=== PATIENT | female | born 1950 | race Caucasian/White ===

== ENCOUNTER 2017-03-08 16:04 | Inpatient (IN) ==
--- NOTE | 2017-03-08 16:50 | Emergency Department Note ---
Nehemias Williamson Gwan, am scribing for, and in the presence of, Carlos Alberto Ronquillo MD 16:40 . Shima Williamson James D, MD, personally performed the services described in this documentation, ascribed by Lacy Del Cid in my presence, and it is both accurate and complete [id number] . Arrival - Arrival Chief Complaint: Altered Mental Status ED Nursing Triage Note: pt was at [facility] for her pt check and went unresposive in the waiting room. Mode of Arrival: Stretcher Limitations: Altered Mental Status Source: Old Records Reviewed, RN Notes Reviewed - History of Present Illness HPI Narrative: Patient is a 67 y/o female who presents to the ED via EMS for further evaluation. Patient will respond to voice commands with inappropriate speech. Caregiver noted that patient was attempting to get into the vehicle after getting her PT check and she began unresponsive. This prompted them to alert EMS to report to ED for further evaluation. Caregiver stated patient has had a decrease in memory and activity over the past 1-2 days. Patient is followed by Dr. Shahid and Dr. Crews. Caregiver continued to state that patient baseline is consistent of being talkative and active. Caregiver denies that patient has a PMHx of psychiatric problems. Patient has a past SHx of smoking cigarettes daily. Mother denies that patient has been compliant with prescribed medications. Pt has a PMHx of CAD, HTN, AFIB, dyslipidemia and NIDDM. No other problems/complaints reported in ED. 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 Patient has a history of an ischemic cardiomyopathy and mitral regurgitation. Patient recently underwent transesophageal echocardiogram by Dr. Shahid which showed a decline in her EF. Onset (ago): minute(s) Consistency: constant Severity: moderate Allergies/Adverse Reactions: Allergies Allergy/AdvReac Type Severity Reaction Status Date / Time SEB Inhibitors Allergy Cough Verified 02/07/17 13:21 latex Allergy RASH Verified 02/07/17 13:21 lisinopril Allergy Cough Verified 02/07/17 13:21 Home Medications: Home Medications Medication Instructions Recorded Confirmed Type Acetaminophen Tab [Tylenol Tab] 650 mg PO Q4H PRN 02/07/17 02/07/17 History Aspirin EC Tab 81 mg PO DAILY 02/07/17 02/07/17 History Atorvastatin [Lipitor] 40 mg PO BEDTIME 02/07/17 02/07/17 History Carvedilol [Coreg] 6.25 mg PO BID 02/07/17 02/07/17 History Colchicine [Colcrys] 0.6 mg PO BID PRN 02/07/17 02/07/17 History Docusate Sodium 100 mg PO DAILY 02/07/17 02/07/17 History Furosemide Tab [Lasix Tab] 40 mg PO DAILY 02/07/17 02/07/17 History Furosemide Tab [Lasix Tab] 40 mg PO PC LUNCH 02/07/17 02/07/17 History Pantoprazole Tab [Protonix Tab] 40 mg PO DAILY 02/07/17 02/07/17 History Potassium Chloride 20 meq PO BID 02/07/17 02/07/17 History Sertraline [Zoloft] 50 mg PO BID 02/07/17 02/07/17 History Warfarin [Coumadin] 3 mg PO [id number]@1800 02/07/17 02/07/17 History Warfarin [Coumadin] 4 mg PO MO 02/07/17 02/07/17 History diphenhydrAMINE CAP [Benadryl Cap] 25 mg PO DAILY PRN 02/07/17 02/07/17 History Review of System - Review of System ROS unobtainable: due to mental status Medical,Surgical,& Family Hx - Medical History Cardio: History of: Cardiac Dysrhythmia (Atrial fibrillation), CAD, Hypertension , Valvular Heart Disease Neurology: No history of: Seizures Endocrine: History of: Diabetes Mellitus (NIDDM), Dyslipidemia - Surgical History Cardiac Surgeries: Sugical HX of: Cardiac Surgery - Social History Smoking Status: Unknown if ever smoked Frequency of Alcohol Use: Unknown Type of Drug Use: Unknown Exam Physical Examination: GENERAL: This is an ill appearing obese white female in no apparent distress. Patient will respond to voice commands with inappropriate speech. VITAL SIGNS: Reviewed HEENT: Head is normocephalic and atraumatic. Pupils are equally round and reactive to light. Extraocular movement are intact. Oropharynx is benign with moist mucous membranes. NECK: Neck is soft and supple without tenderness. There are no masses. There is no lymphadenopathy. LUNGS: Lungs are clear to auscultation bilaterally. Chest rises symmetrically. There is no chest wall tenderness. CV: Heart is irregularly irregular without murmurs, rubs, or gallops. ABDOMEN: Abdomen is soft, non-tender to palpation. There are no abnormal masses palpated. There is no organomegaly. Bowel sounds are present and active. SKIN: Skin is warm and dry. No rash. EXTREMITIES: Patient has full range of motion without tenderness. There is no pedal edema. NEUROLOGIC: Arousable to vocal and tactile stimulus. Moves all extremities. Vital Signs: Vital Signs Temperature 98.6 F 03/08/17 16:10 Pulse Rate 86 03/08/17 16:10 Respiratory Rate 18 03/08/17 16:10 Blood Pressure 116/80 03/08/17 16:10 O2 Sat by Pulse Oximetry 95 03/08/17 16:10 Course - Consultations Consultation #1: Discussed with hospitalist. Patient will be seen by them in the emergency department. Time: 18:11 Results - Labs CBC & BMP: 03/08/17 17:23 03/08/17 17:23 Lab Results: I have reviewed the patients labs - EKG EKG results: interpreted by ERMD - Impressions EKG: Atrial fib with a rate of 75, frequent PVCs, nonspecific ST-T wave changes. - Diagnostic Findings Procedure: Chest x-ray: image reviewed by me (Old median sternotomy, cardiomegaly. prosthetic valve.), CT: image reviewed by me (CT head: No acute intracranial lesion or hemorrhage. Old left cerebellar infarct.) Disposition Clinical Impression: Altered mental status, Chronic anticoagulation, Mitral regurgitation, Ischemic cardiomyopathy Case discussed with: patient's family Disposition: Still a Patient
--- NOTE | 2017-03-08 16:56 | CT Report ---
Exam: CT head without intravenous contrast Clinical History: 67-year-old female with altered mental status, confusion Technique: Axial computed tomography images of the head/brain without intravenous contrast Comparison: No relevant comparisons Findings: Brain: Remote left cerebellar infarction with encephalomalacia. Patchy microangiopathic small vessel ischemic changes throughout the deep white matter. Lau-white matter distinction maintained. No mass effect. No intra or extra-axial hemorrhage. Ventricles: Unremarkable. No ventriculomegaly. Bones/joints: Calvarium is intact Soft tissues: Unremarkable Sinuses: No active paranasal sinus process Mastoid air cells: Unremarkable visualized. Impression: 1. No acute intracranial abnormality. Remote left cerebellar insult and mild microangiopathic small vessel ischemic changes are noted. PROCEDURE INTERPRETED AT [facility] DEPARTMENT OF RADIOLOGY Final Report Signed by: Hector Lau
--- NOTE | 2017-03-08 17:00 | XRay Report ---
Portable chest March 08, 2017 at 1654 hours Indication: Altered mental status Comparison images dated September 17, 2013 Findings: Cardiac mediastinal contours are stable post sternotomy and valve replacement. Chronic coarsening of interstitium. No consolidative or congestive process. No acute osseous abnormality. Granulomatous changes are noted. Impression: No acute cardiopulmonary findings PROCEDURE INTERPRETED AT [facility] DEPARTMENT OF RADIOLOGY Final Report Signed by: Hector Lau
--- NOTE | 2017-03-08 17:29 | EKG Report ---
Stationary ECG Study [facility] ER Test Date: 03/08/2017 5:07:02 PM Pat Name: BREONNA JENNINGS Department: Room: Gender: F Balance Staff Inspector: : [id number] Requested by: Carlos Alberto Aguilar Order Number: [id number] Reading MD: GRETA TANG Intervals [place] Rate: 75 P: 999 MA: 0 QRS: 59 QRSD: 74 T: 127 QT: 354 QTc: 383 Interpretive Statements ATRIAL FIBRILLATION WITH ABERRANT CONDUCTION OR VENTRICULAR PREMATURE COMPLEXES LOW QRS VOLTAGE IN PRECORDIAL LEADS POSSIBLE ANTERIOR MYOCARDIAL INFARCTION, PROBABLY OLD ABNORMAL RHYTHM ECG Electronically Signed On 03-08-17 20:16:34 CDT by GRETA TANG [email or web address]
[2017-03-08 17:45] LABS: Basophils # 0.1 10*3/uL (0.0-0.2); Eosinophils # 0.1 10*3/uL (0.0-0.87); Hematocrit 40.6 VOL% (35.7-47.0); Hemoglobin 13.3 GM/DL (12.0-16.0); Immature Granulocytes % 0.2 %; Immature Granulocytes Absolute 0.01 #; Lymphocytes # 1.6 10*3/uL (1.4-4.0); Lymphocytes % 26.7 % (21.3-54.2); Mean Corpuscular HGB Conc 32.8 GM/DL (32-36); Mean Corpuscular Hemoglobin 28 PG (27-34); Mean Corpuscular Volume 86.6 FL (87-102); Monocytes # 0.8 10*3/uL (0.11-0.8); Monocytes % 13.6 % (1.7-12.7); Neutrophils # 3.3 10*3/uL (1.4-7.4); Neutrophils % 56.5 % (38.7-73.9); Platelet Count 223 T/CUMM (130-400); Red Blood Count 4.69 MC/CUMM (3.8-5.5); White Blood Count 5.9 T/CUMM (4-12)
[2017-03-08 17:47] LABS: Apearance,Urine CLEAR (Clear); Bilirubin,Urine Negative (Negative); Blood, Urine Negative (Negative); Glucose,Urine (UA) Negative (Negative); Ketones,Urine Negative (Negative); Mucus,Urine Occasional /LPF (Occasional); Nitrite,Urine Negative (Negative); Protein,Urine Negative; RBC,Urine 1 /HPF (0-4); Urine Color Yellow (Yellow); Urine Specific Gravity 1.006 (1.001-1.035); Urine Urobilinogen < 2.0 EU/DL (0.2-1.0); WBC,Urine 1 /HPF (0-6)
[2017-03-08 17:57] LABS: Barbiturates Screen,Urine Negative (Negative); Benzodiazepines Screen,Urine Negative (Negative); Cannabinoid Screen,Urine Negative (Negative); Opiate Screen,Urine Negative (Negative); Phencyclidine Screen,Urine Negative (Negative)
[2017-03-08 18:03] LABS: Albumin 3.3 G/DL (3.4-5.0); Bilirubin,Total 1.1 MG/DL (0.2-1.0); Calcium 8.7 MG/DL (8.5-10.1); Total Protein 6.6 G/DL (6.4-8.3)
[2017-03-08 18:04] LABS: Osmolality,Calculated 281.5 MOS/KG (273-304); Potassium 3.7 MMOL/L (3.5-5.1)
[2017-03-08 18:09] LABS: Partial Thromboplastin Time 46.7 SECS (0-40)
[2017-03-08] MEDS ORDERED: ONDANSETRON 4 MG/2 ML VIAL IV PRN (18:12)
[2017-03-08] MEDS ORDERED: MORPHINE 2 MG/1 ML SYRINGE IV PRN (18:12)
[2017-03-08] MEDS ORDERED: DOCUSATE SODIUM 100 MG CAPSULE PO PRN (18:12)
[2017-03-08] MEDS ORDERED: ACETAMINOPHEN 325 MG TABLET PO PRN (18:12)
--- NOTE | 2017-03-08 18:41 | Hospitalist History & Physical ---
Assessment and Plan - Time spent with patient Time spent with patient: Greater than 30 minutes (1) Altered mental status Status: Acute Assessment and plan: Patient has altered mental status with no focal motor deficits detected. There is no evidence of infectious process at this time. She does have some difficulty with speech and refuses to answer questions. We will place her in the hospital tonight with cardiac monitoring and frequent neuro checks. Will review her medications and avoid any potentially offending agents. If no etiology is determined and no improvement overnight, she will need further workup likely to include MRI of the brain and neurologic consultation. Current Visit: Yes (2) Coronary artery disease Status: Chronic Assessment and plan: She has a history of coronary artery disease however there is no evidence of ACS at this time. Continue current regimen. Current Visit: No (3) Hypertension Status: Chronic Assessment and plan: Currently well controlled. Continue current regimen. Current Visit: No Qualifiers: Hypertension type: essential hypertension Qualified Code(s): I10 - Essential (primary) hypertension (4) Hyperlipidemia Status: Chronic Assessment and plan: Checking fasting lipid panel in the a.m. and continuing current medical regimen. Current Visit: No (5) Chronic anticoagulation Status: Chronic Assessment and plan: Reported to have an INR greater than 5 and Coumadin placed on hold today. We will follow-up INR in a.m. while holding her Coumadin tonight. Current Visit: Yes (6) Ischemic cardiomyopathy Status: Chronic Assessment and plan: Continuing current regimen. She does have some increasing lower extremity edema will attempt gentle diuresis overnight. Current Visit: Yes (7) Mitral regurgitation Status: Chronic Assessment and plan: Stable. Cardiology has been consulted. Current Visit: Yes History of Present Illness Chief complaint: Loss of consciousness History of present illness: Ms. Mcclure is a 67 year old female with multiple medical problems who went to the cardiovascular [place] [facility] to have her pro time checked and it was noted to be greater than 500 Coumadin was placed on hold. Her mother and a caregiver were taken her to the car in a wheelchair and before she could get up she lost consciousness for 2-3 minutes. There was no witnessed seizure activity , bowel or bladder incontinence, nausea, vomiting, diaphoresis. She denies any associated chest pain, shortness of breath, focal motor weakness nor paresthesias. She has been having some difficulty with her speech and is not answering questions as she would normally do. Family states she has had no recent fever, chills, dysuria, hematuria, diarrhea, constipation, melena, hematochezia, hematemesis. They state that she has had an ongoing diffuse rash for which she is taking Benadryl. Her primary care provider is Dr. Crews , patrol police lieutenant Dr. Shahid. Home Medications Medication Instructions Recorded Confirmed Type Acetaminophen Tab [Tylenol Tab] 650 mg PO Q4H PRN 02/07/17 02/07/17 History Aspirin EC Tab 81 mg PO DAILY 02/07/17 02/07/17 History Atorvastatin [Lipitor] 40 mg PO BEDTIME 02/07/17 02/07/17 History Carvedilol [Coreg] 6.25 mg PO BID 02/07/17 02/07/17 History Colchicine [Colcrys] 0.6 mg PO BID PRN 02/07/17 02/07/17 History Docusate Sodium 100 mg PO DAILY 02/07/17 02/07/17 History Furosemide Tab [Lasix Tab] 40 mg PO DAILY 02/07/17 02/07/17 History Furosemide Tab [Lasix Tab] 40 mg PO PC LUNCH 02/07/17 02/07/17 History Pantoprazole Tab [Protonix Tab] 40 mg PO DAILY 02/07/17 02/07/17 History Potassium Chloride 20 meq PO BID 02/07/17 02/07/17 History Sertraline [Zoloft] 50 mg PO BID 02/07/17 02/07/17 History Warfarin [Coumadin] 3 mg PO [id number]@1800 02/07/17 02/07/17 History Warfarin [Coumadin] 4 mg PO MO 02/07/17 02/07/17 History diphenhydrAMINE CAP [Benadryl Cap] 25 mg PO DAILY PRN 02/07/17 02/07/17 History Allergies Allergy/AdvReac Type Severity Reaction Status Date / Time SEB Inhibitors Allergy Cough Verified 02/07/17 13:21 latex Allergy RASH Verified 02/07/17 13:21 lisinopril Allergy Cough Verified 02/07/17 13:21 Medical,Surgical,& Family Hx - Medical History Cardio: History of: Cardiac Dysrhythmia (Atrial fibrillation), CAD, Hypertension , Valvular Heart Disease Neurology: No history of: Seizures Endocrine: History of: Diabetes Mellitus (NIDDM), Dyslipidemia - Surgical History Cardiac Surgeries: Sugical HX of: Cardiac Surgery - Family History Family History: Denies;: Family Diabetes, Family Heart Disease - Social History Smoking Status: Former smoker Frequency of Alcohol Use: None Type of Drug Use: None 12 point system: reviewed and no additional remarkable complaints except as stated Exam - Constitutional Vitals: Period Temp Pulse Resp BP Sys/Wilson Pulse Ox Last 24 Hr 98.6 F-98.6 F 86-86 18-18 116-116/80-80 95 General appearance: no acute distress - Head Head exam: Present: normocephalic, atraumatic - Eye Eye exam: Present: EOMI Pupils: Present: NAT - ENT ENT exam: Present: normal oropharynx - Neck Neck exam: Absent: lymphadenopathy, meningismus, tenderness, thyromegaly - Respiratory Respiratory exam: Present: clear to auscultation bilaterally. Absent: accessory muscle use, rales, rhonchi, wheezes - Cardiovascular Cardiovascular exam: Present: irregular rhythm. Absent: carotid bruit, gallop, JVD, rubs, systolic murmur, tachycardia - GI/Abdominal GI/Abdominal exam: Present: normal bowel sounds, soft. Absent: mass, tenderness , rebound - Extremities Exam Extremities exam: Present: normal capillary refill, edema (1-2+ pitting edema bilaterally). Absent: calf tenderness - Back Exam Back exam: Present: normal inspection - Neurological Exam Neurological exam: Present: alert, CN II-XII intact, other (She has constant movement of her head and upper extremities, she does not answer questions freely ) - Psychiatric Psychiatric exam: Present: anxious - Skin Skin exam: Present: warm, dry, rash (Diffuse rash with excoriation). Absent: erythema Results - Labs CBC & BMP: 03/08/17 17:23 03/08/17 17:23 Lab Results: I have reviewed the past 24 hour labs - EKG EKG shows: atrial fibrillation - Diagnostic Findings Procedure: Chest x-ray: report reviewed by me, CT: report reviewed by me Quality Measures - VTE Contraindication to Pharmacological VTE Prophylaxis: Already on Theraputic Agent , No Prophylaxis Needed
[2017-03-08] MEDS ORDERED: COLCHICINE 0.6 MG TABLET PO PRN (20:11)
[2017-03-08] MEDS ORDERED: ATORVASTATIN 40 MG TABLET PO SCH (21:00)
[2017-03-08] MEDS: HydrOXYzine PAMOATE 25 MG CAPSULE PO SCH (21:11)
[2017-03-08] MEDS: FUROSEMIDE 40 MG/4 ML VIAL IV SCH (21:12)
[2017-03-08] MEDS: CARVEDILOL 6.25 MG TABLET PO SCH (21:12)
[2017-03-08] MEDS: SERTRALINE 50 MG TABLET PO SCH (21:12)
[2017-03-08] MEDS: POTASSIUM CHLORIDE 20 MEQ TABLET PO SCH (21:15)
[2017-03-09] MEDS: POTASSIUM CHLORIDE 20 MEQ TABLET PO SCH ×2 (00:27→08:39)
[2017-03-09] MEDS: FUROSEMIDE 40 MG/4 ML VIAL IV SCH ×3 (02:44→17:17)
[2017-03-09 07:18] LABS: Basophils % 0.7 % (0.0-0.8); Eosinophils % 0.7 % (0.00-10.9); Hematocrit 42.5 VOL% (35.7-47.0); Hemoglobin 13.7 GM/DL (12.0-16.0); Immature Granulocytes % 0.2 %; Immature Granulocytes Absolute 0.01 #; Lymphocytes % 17.2 % (21.3-54.2); Mean Corpuscular HGB Conc 32.2 GM/DL (32-36); Mean Corpuscular Hemoglobin 28 PG (27-34); Mean Corpuscular Volume 85.7 FL (87-102); Mean Platelet Volume 9.2 FL (9.6-12.0); Monocytes # 0.7 10*3/uL (0.11-0.8); Neutrophils # 4.2 10*3/uL (1.4-7.4); Neutrophils % 70.2 % (38.7-73.9); Platelet Count 225 T/CUMM (130-400); Red Blood Count 4.96 MC/CUMM (3.8-5.5); Red Cell Distribution Width 17.2 % (9.3-17.3); White Blood Count 5.9 T/CUMM (4-12)
[2017-03-09 07:47] LABS: Albumin 3.3 G/DL (3.4-5.0); Bilirubin,Total 1.8 MG/DL (0.2-1.0); Calcium 8.9 MG/DL (8.5-10.1); Magnesium 2.2 MG/DL (1.8-2.4); Osmolality,Calculated 284.3 MOS/KG (273-304); Potassium 3.8 MMOL/L (3.5-5.1); Risk Ratio 2.57; Total Protein 6.6 G/DL (6.4-8.3); VLDL CHOLESTEROL 18.4 MG/DL
[2017-03-09 08:02] LABS: PT Patient Result 63.2 SECS
[2017-03-09 08:03] LABS: INR 5.4
--- NOTE | 2017-03-09 08:47 | Cardiology Consult Note ---
<Iliana Balderas E - Last Filed: 03/09/17 08:48> Assessment and Plan - Time spent with patient Time spent with patient: Greater than 30 minutes (Due to assessment, plan, and documentation.) (1) Altered mental status Status: Acute Assessment and plan: See plan of care listed below. Current Visit: Yes (2) Coronary artery disease Status: Chronic Assessment and plan: See plan of care listed below. Current Visit: No (3) Hypertension Status: Chronic Assessment and plan: See plan of care listed below. Current Visit: No Qualifiers: Hypertension type: essential hypertension Qualified Code(s): I10 - Essential (primary) hypertension (4) Hyperlipidemia Status: Chronic Assessment and plan: See plan of care listed below. Current Visit: No (5) Chronic anticoagulation Status: Chronic Assessment and plan: See plan of care listed below. Current Visit: Yes (6) Ischemic cardiomyopathy Status: Chronic Assessment and plan: See plan of care listed below. Current Visit: Yes (7) Mitral regurgitation Status: Chronic Assessment and plan: See plan of care listed below. Current Visit: Yes (8) Atrial fibrillation Status: Chronic Assessment and plan: See plan of care listed below. Current Visit: Yes Qualifiers: Atrial fibrillation type: paroxysmal Qualified Code(s): I48.0 - Paroxysmal atrial fibrillation History of Present Illness - Data of Consult Patient: known to practice within the last 3 years Consult date: 03/08/17 Requesting Physician: Dong Maya Primary care physician: Aaron Crews - Consult Narrative Reason for consult: Hx MVR, chronic anticoagulation, AMS History of present illness: Applied Computer Science Professor: Dr. Shahid PCP: Dr. Crews Ms. Mcclure is being seen in room 427. Due to her altered mental status, much of the history is obtained from the medical record as there is currently no family present. Ms. Mcclure is a 67 year old female who has a history of severe mitral regurgitation, coronary artery disease, and ischemic cardiomyopathy. Her ejection fraction was originally 20% but is now up to 60%. She underwent LHC/ RHC/ASHLIE and was discovered to have 100% LAD occlusion and severe mitral regurgitation. On September 12, 2013, Dr. Sanabria performed CABG (CULLEN to diagonal D1 ) and MVR (bioprosthetic). She also has a history of atrial fibrillation for which she takes Coumadin. She has a history of SEB inhibitor induced cough. Ms. Mcclure went to the cardiovascular [place] of the [facility] yesterday to have her PT/INR checked and was told to hold her Coumadin due to an INR 5.2. She was leaving via wheelchair with a family friend and apparently lost consciousness for 2-3 minutes. There was no witnessed seizure activity, bowel or bladder incontinence, nausea, vomiting, or diaphoresis. It does not seem as though she had any associated chest pain, shortness of breath, focal motor weakness, nor paresthesias. She was brought back into the [facility] clinic and was noted to be awake but not answering all questions. The patient's friend who is with her reported that she started becoming confused the previous day but they had not taken her to be evaluated yet. Patient was unable to get herself in her personal vehicle and EMS was called to take her to the emergency room. At [facility], her blood pressure was 102/78 she was noted to have a strong pulse. In the emergency room, patient would follow some commands and would voice answers to some questions with inappropriate speech. According to the patient' s caregiver, she has a baseline consistent with being talkative and active. According to her record, there is no history of psychiatric problems. This morning upon my exam, the patient is awake and alert but not responding appropriately. At first, when asked questions, she would not not respond verbally at all. Upon questioning her medical history and mentioning her physicians, she began to speak. She is able to speak clearly without slurring her words but does not complete her sentences frequently and seems to lose her train of thought quickly. When asked if she was itching, her reply was, "yes." She was able to complete a whole sentence at the conclusion of my exam and informed me and her nurse who was present, "Y'all are doing a good job." She was also able to ask, "Could somebody help me go to the bathroom?" She is able to move all of her extremities spontaneously and when her hands are squeezed, she will squeeze in return. She does not follow commands to move her upper or lower extremities. She has symmetrical facial movements and is able to smile and raise her eyebrows symmetrically although not to command. Chest x-ray was negative, CBC grossly unremarkable. Creatinine is 1.1. Potassium 3.8. Magnesium 2.2. BNP was 912 upon admission she was started on gentle diuresis. She is -1.2 L in her I&O's this morning. Will further discuss with Dr. Shahid and await her additional recommendations. ASSESSMENT/PLAN: 1. ALTERED MENTAL STATUS: With unclear etiology. Urine drug screen was negative. CT of the head revealed no acute intracranial abnormality but did show remote left cerebellar insult and mild microangiopathic small vessel ischemic changes. Neurology has been consulted. I have ordered a carotid Doppler ultrasound due to her reported syncopal episode yesterday. 2. CORONARY ARTERY DISEASE: Status post CABG 09/12/2013. It has been recommended that she have a repeat left and right heart catheterization but the patient has had scheduling conflicts and this has not been performed yet. 3. HYPERTENSION: Currently well controlled. Continue current regimen, monitor and adjust accordingly. 4. HYPERLIPIDEMIA: Lipid panel revealed triglycerides 92, cholesterol 54, LDL 27 , HDL 21. Continue lipid-lowering agent. 5. CHRONIC ANTICOAGULATION: Coumadin currently on hold due to elevated INR, 5.4 today. Will continue to monitor. 6. ISCHEMIC CARDIOMYOPATHY: Noted to have normal LV function per recent echo . She is noted to have some lower extremity edema and has been placed on gentle diuresis. She put out 1.4 L since admission. 7. MITRAL REGURGITATION: This was noted to be severe at the time of her recent ASHLIE in February. She was recommended to have repeat left and right heart catheterization to follow with mitral valve repair. She was having difficulty arranging for this because she takes care of her mother. 8. ATRIAL FIBRILLATION, PAROXYSMAL: EKG on admission notes atrial fibrillation with occasional PVC. She is normally chronically anticoagulated with Coumadin; however, this is on hold due to elevated INR. Recent EKGs that I have reviewed have shown her to be in atrial fibrillation each time. We will continue to monitor and continue with rate control. CC: Jennifer Hunter MD - Home Medications and Allergies Home Medications: Home Medications Medication Instructions Recorded Confirmed Type Atorvastatin [Lipitor] 40 mg PO BEDTIME 02/07/17 03/09/17 History Carvedilol [Coreg] 6.25 mg PO BID 02/07/17 03/09/17 History Furosemide Tab [Lasix Tab] 80 mg PO BID 02/07/17 03/09/17 History Pantoprazole Tab [Protonix Tab] 40 mg PO DAILY 02/07/17 03/09/17 History Potassium Chloride 40 meq PO BID 02/07/17 03/09/17 History Losartan Potassium [Losartan 25 mg PO DAILY 03/08/17 03/09/17 History Potassium] Warfarin Sodium [Warfarin Sodium] 0 mg PO DAILY 03/08/17 03/09/17 History hydrOXYzine HCl [Hydroxyzine HCl] 25 - 50 mg PO Q8HR 03/08/17 03/09/17 History Permethrin [Permethrin 5% Cream] 1 applic TOP ONCE 03/09/17 03/09/17 History Sertraline HCl 50 mg PO BID 03/09/17 03/09/17 History clonazePAM TAB [KlonoPIN] 0.5 mg PO BID PRN 03/09/17 03/09/17 History Allergies/Adverse Reactions: Allergies Allergy/AdvReac Type Severity Reaction Status Date / Time SEB Inhibitors Allergy Cough Verified 02/07/17 13:21 latex Allergy RASH Verified 02/07/17 13:21 lisinopril Allergy Cough Verified 02/07/17 13:21 ROS unobtainable: due to mental status Medical,Surgical,& Family Hx - Medical History Cardio: History of: Cardiac Dysrhythmia (Atrial fibrillation), CAD, Hypertension , Valvular Heart Disease Psychological: History of: Anxiety Disorders, Depression Neurology: No history of: Seizures Endocrine: History of: Diabetes Mellitus (NIDDM), Dyslipidemia - Surgical History Cardiac Surgeries: Sugical HX of: Cardiac Surgery - Family History Family History: Denies;: Family Diabetes, Family Heart Disease - Social History Smoking Status: Former smoker Frequency of Alcohol Use: None Type of Drug Use: None Marital Status: Lives With:: Parent Physical Examination Vital Signs Temp Pulse Resp BP Pulse Ox 98.6 F 86 18 116/80 95 03/08/17 16:10 03/08/17 16:10 03/08/17 16:10 03/08/17 16:10 03/08/17 16:10 Exam: General appearance: Appears well. Pleasant and cooperative. Overweight, no acute distress. Head exam: Present: normal inspection, normocephalic, atraumatic. Absent: hematoma, laceration Eye exam: Present: EOMI. Absent: conjunctival injection, nystagmus, periorbital swelling, scleral icterus, laceration to eyelids, jaundice Pupils: Present: PERRL. Absent: constricted, dilated, fixed, irregular, unequal ENT exam: Present: normal exam, normal external ear exam, mucous membranes moist. Neck exam: Present: normal inspection, midline trachea. Absent: masses, lymphadenopathy, tenderness, thyromegaly, carotid bruit Respiratory exam: Present: clear to auscultation bilaterally. Absent: accessory muscle use, chest wall tenderness, rales, rhonchi, wheezing. Cardiovascular exam: Present: Irregular rate and rhythm. Systolic murmur. Absent: gallop, rubs GI/Abdominal exam: Present: normal bowel sounds, soft. Absent: distended, firm , hernia, mass, tenderness. Extremities exam: Present: No Clubbing, No Cyanosis, Upper Extr. Pulses 2+, Lower Extr. Pulses 2+, 1+ BLE edema. Capillary refill less than 3 seconds. Musculoskeletal: Present: No Fluid Collection, No Pain, Normal Range of Motion Back exam: Present: normal inspection except for diffuse rash. Absent: muscle spasm, vertebral tenderness Neurological exam: Present: awake, alert, Moves all extremities spontaneously but does not follow commands. She has constant movement of her head and upper extremities. She answers some questions but with inappropriate speech. Psychiatric exam: Present: Appears slightly anxious Skin exam: Present: warm, dry. Diffuse rash with excoriation. Absent: cyanosis , diaphoretic, rash, urticaria Result/EKG - Labs CBC & BMP: 03/09/17 06:40 03/09/17 06:40 Lab Results: I have reviewed the past 24 hour labs Labs: Laboratory Results - last 24 hr 03/08/17 03/08/17 03/08/17 17:23 17:23 17:23 WBC 5.9 RBC 4.69 Hgb 13.3 Hct 40.6 MCV 86.6 L MCH 28 MCHC 32.8 RDW 17.0 Plt Count 223 MPV 10.0 Neut % (Auto) 56.5 Lymph % (Auto) 26.7 [place] % (Auto) 13.6 H Eos % (Auto) 2.0 Baso % (Auto) 1.0 H Neut # (Auto) 3.3 Lymph # (Auto) 1.6 [place] # (Auto) 0.8 Eos # (Auto) 0.1 Baso # (Auto) 0.1 Immature Gran % 0.2 Nucleated RBC % 0.0 Immature Gran # 0.01 Nucleated RBCs # 0.00 Immature Plt Fraction 0.0 INR 6.0 H* PT Patient/Control Mix 71.0 Circ Anticoag PTT 46.7 H Sodium 139 Potassium 3.7 Chloride 103 Carbon Dioxide 27 Anion Gap 12.7 BUN 25 H Creatinine 1.10 H GFR Calculation 59 BUN/Creatinine Ratio 22.00 H Glucose 124 H Calculated Osmolality 281.5 Calcium 8.7 Magnesium Total Bilirubin 1.10 H AST 34 ALT 33 Alkaline Phosphatase 108 Ammonia 32 Troponin I B-Natriuretic Peptide Total Protein 6.6 Albumin 3.3 L Globulin 3.3 Albumin/Globulin Ratio 1.0 L Triglycerides Cholesterol LDL Cholesterol VLDL Cholesterol HDL Cholesterol Heart Disease Risk Ratio Urine Color Urine Appearance Urine pH Ur Specific [place] Urine Protein Urine Glucose (UA) Urine Ketones Urine Blood Urine Nitrate Urine Bilirubin Urine Urobilinogen Urine Leukocytes Urine RBC Urine WBC Urine Mucus Ur Culture Indicated? Urine Opiates Screen Ur Barbiturates Screen Ur Phencyclidine Scrn U Amphetamine/Methamph U Benzodiazepines Scrn U Cocaine Metab Screen U Cannabinoids Screen 03/08/17 03/08/17 03/08/17 17:23 17:23 17:23 WBC RBC Hgb Hct MCV MCH MCHC RDW Plt Count MPV Neut % (Auto) Lymph % (Auto) [place] % (Auto) Eos % (Auto) Baso % (Auto) Neut # (Auto) Lymph # (Auto) [place] # (Auto) Eos # (Auto) Baso # (Auto) Immature Gran % Nucleated RBC % Immature Gran # Nucleated RBCs # Immature Plt Fraction INR PT Patient/Control Mix Circ Anticoag PTT Sodium Potassium Chloride Carbon Dioxide Anion Gap BUN Creatinine GFR Calculation BUN/Creatinine Ratio Glucose Calculated Osmolality Calcium Magnesium Total Bilirubin AST ALT Alkaline Phosphatase Ammonia Troponin I B-Natriuretic Peptide 912 H Total Protein Albumin Globulin Albumin/Globulin Ratio Triglycerides Cholesterol LDL Cholesterol VLDL Cholesterol HDL Cholesterol Heart Disease Risk Ratio Urine Color Yellow Urine Appearance Clear Urine pH 5.0 Ur Specific [place] 1.006 Urine Protein Negative Urine Glucose (UA) Negative Urine Ketones Negative Urine Blood Negative Urine Nitrate Negative Urine Bilirubin Negative Urine Urobilinogen < 2.0 H Urine Leukocytes Negative Urine RBC 1 Urine WBC 1 Urine Mucus Occasional Ur Culture Indicated? Not indicated Urine Opiates Screen Negative Ur Barbiturates Screen Negative Ur Phencyclidine Scrn Negative U Amphetamine/Methamph Negative U Benzodiazepines Scrn Negative U Cocaine Metab Screen Negative U Cannabinoids Screen Negative 03/08/17 03/08/17 03/09/17 20:49 23:54 06:40 WBC RBC Hgb Hct MCV MCH MCHC RDW Plt Count MPV Neut % (Auto) Lymph % (Auto) [place] % (Auto) Eos % (Auto) Baso % (Auto) Neut # (Auto) Lymph # (Auto) [place] # (Auto) Eos # (Auto) Baso # (Auto) Immature Gran % Nucleated RBC % Immature Gran # Nucleated RBCs # Immature Plt Fraction INR 5.4 H* PT Patient/Control Mix 63.2 Circ Anticoag PTT Sodium Potassium Chloride Carbon Dioxide Anion Gap BUN Creatinine GFR Calculation BUN/Creatinine Ratio Glucose Calculated Osmolality Calcium Magnesium Total Bilirubin AST ALT Alkaline Phosphatase Ammonia Troponin I 0.042 0.033 B-Natriuretic Peptide Total Protein Albumin Globulin Albumin/Globulin Ratio Triglycerides Cholesterol LDL Cholesterol VLDL Cholesterol HDL Cholesterol Heart Disease Risk Ratio Urine Color Urine Appearance Urine pH Ur Specific [place] Urine Protein Urine Glucose (UA) Urine Ketones Urine Blood Urine Nitrate Urine Bilirubin Urine Urobilinogen Urine Leukocytes Urine RBC Urine WBC Urine Mucus Ur Culture Indicated? Urine Opiates Screen Ur Barbiturates Screen Ur Phencyclidine Scrn U Amphetamine/Methamph U Benzodiazepines Scrn U Cocaine Metab Screen U Cannabinoids Screen 03/09/17 03/09/17 06:40 06:40 WBC 5.9 RBC 4.96 Hgb 13.7 Hct 42.5 MCV 85.7 L MCH 28 MCHC 32.2 RDW 17.2 Plt Count 225 MPV 9.2 L Neut % (Auto) 70.2 Lymph % (Auto) 17.2 L [place] % (Auto) 11.0 Eos % (Auto) 0.7 Baso % (Auto) 0.7 Neut # (Auto) 4.2 Lymph # (Auto) 1.0 L [place] # (Auto) 0.7 Eos # (Auto) 0.0 Baso # (Auto) 0.0 Immature Gran % 0.2 Nucleated RBC % 0.0 Immature Gran # 0.01 Nucleated RBCs # 0.00 Immature Plt Fraction 0.0 INR PT Patient/Control Mix Circ Anticoag PTT Sodium 141 Potassium 3.8 Chloride 105 Carbon Dioxide 27 Anion Gap 12.8 BUN 23 H Creatinine 1.10 H GFR Calculation 57 BUN/Creatinine Ratio 20.00 Glucose 103 Calculated Osmolality 284.3 Calcium 8.9 Magnesium 2.2 Total Bilirubin 1.80 H AST 29 ALT 32 Alkaline Phosphatase 106 Ammonia Troponin I B-Natriuretic Peptide Total Protein 6.6 Albumin 3.3 L Globulin 3.3 Albumin/Globulin Ratio 1.0 L Triglycerides 92 Cholesterol 54 LDL Cholesterol 27.0 VLDL Cholesterol 18.4 HDL Cholesterol 21 L Heart Disease Risk Ratio 2.57 Urine Color Urine Appearance Urine pH Ur Specific [place] Urine Protein Urine Glucose (UA) Urine Ketones Urine Blood Urine Nitrate Urine Bilirubin Urine Urobilinogen Urine Leukocytes Urine RBC Urine WBC Urine Mucus Ur Culture Indicated? Urine Opiates Screen Ur Barbiturates Screen Ur Phencyclidine Scrn U Amphetamine/Methamph U Benzodiazepines Scrn U Cocaine Metab Screen U Cannabinoids Screen - EKG EKG results: interpreted by me EKG shows: atrial fibrillation Quality Measures - VTE Contraindication to Pharmacological VTE Prophylaxis: Already on Theraputic Agent , No Prophylaxis Needed <Anna Shahid - Last Filed: 03/09/17 18:31> History of Present Illness - Consult Narrative History of present illness: I have personally interviewed and evaluated the patient, reviewed the chart and discussed medical decision-making with practitioner Andrey. I have read this note and agree with her documentation here in. The patient does need to have her mitral valve replaced and she had put this off. At this point, we will have to wait and see how her neurologic symptoms are going to resolve. CC: Jennifer Hunter MD Physical Examination Vital Signs Temp Pulse Resp BP Pulse Ox 98.6 F 86 18 116/80 95 03/08/17 16:10 03/08/17 16:10 03/08/17 16:10 03/08/17 16:10 03/08/17 16:10 Result/EKG - Labs CBC & BMP: 03/09/17 06:40 03/09/17 06:40 Labs: Laboratory Results - last 24 hr 03/08/17 03/08/17 03/09/17 20:49 23:54 06:40 WBC RBC Hgb Hct MCV MCH MCHC RDW Plt Count MPV Neut % (Auto) Lymph % (Auto) [place] % (Auto) Eos % (Auto) Baso % (Auto) Neut # (Auto) Lymph # (Auto) [place] # (Auto) Eos # (Auto) Baso # (Auto) Immature Gran % Nucleated RBC % Immature Gran # Nucleated RBCs # Immature Plt Fraction INR 5.4 H* PT Patient/Control Mix 63.2 Sodium Potassium Chloride Carbon Dioxide Anion Gap BUN Creatinine GFR Calculation BUN/Creatinine Ratio Glucose POC Glucose Calculated Osmolality Calcium Magnesium Total Bilirubin AST ALT Alkaline Phosphatase Troponin I 0.042 0.033 Total Protein Albumin Globulin Albumin/Globulin Ratio Triglycerides Cholesterol LDL Cholesterol VLDL Cholesterol HDL Cholesterol Heart Disease Risk Ratio Urine Color Urine Appearance Urine pH Ur Specific [place] Urine Protein Urine Glucose (UA) Urine Ketones Urine Blood Urine Nitrate Urine Bilirubin Urine Urobilinogen Urine Leukocytes Urine RBC Urine WBC Amorphous Crystals Urine Bacteria Urine Mucus Ur Culture Indicated? 03/09/17 03/09/17 03/09/17 06:40 06:40 16:40 WBC 5.9 RBC 4.96 Hgb 13.7 Hct 42.5 MCV 85.7 L MCH 28 MCHC 32.2 RDW 17.2 Plt Count 225 MPV 9.2 L Neut % (Auto) 70.2 Lymph % (Auto) 17.2 L [place] % (Auto) 11.0 Eos % (Auto) 0.7 Baso % (Auto) 0.7 Neut # (Auto) 4.2 Lymph # (Auto) 1.0 L [place] # (Auto) 0.7 Eos # (Auto) 0.0 Baso # (Auto) 0.0 Immature Gran % 0.2 Nucleated RBC % 0.0 Immature Gran # 0.01 Nucleated RBCs # 0.00 Immature Plt Fraction 0.0 INR PT Patient/Control Mix Sodium 141 Potassium 3.8 Chloride 105 Carbon Dioxide 27 Anion Gap 12.8 BUN 23 H Creatinine 1.10 H GFR Calculation 57 BUN/Creatinine Ratio 20.00 Glucose 103 POC Glucose Calculated Osmolality 284.3 Calcium 8.9 Magnesium 2.2 Total Bilirubin 1.80 H AST 29 ALT 32 Alkaline Phosphatase 106 Troponin I Total Protein 6.6 Albumin 3.3 L Globulin 3.3 Albumin/Globulin Ratio 1.0 L Triglycerides 92 Cholesterol 54 LDL Cholesterol 27.0 VLDL Cholesterol 18.4 HDL Cholesterol 21 L Heart Disease Risk Ratio 2.57 Urine Color Yellow Urine Appearance Cloudy Urine pH 5.0 Ur Specific [place] 1.012 Urine Protein 30 Urine Glucose (UA) Negative Urine Ketones Negative Urine Blood Large Urine Nitrate Negative Urine Bilirubin Negative Urine Urobilinogen 4.0 H Urine Leukocytes Trace Urine RBC 70 Urine WBC 4 Amorphous Crystals Few Urine Bacteria Many Urine Mucus Occasional Ur Culture Indicated? Not indicated 03/09/17 16:47 WBC RBC Hgb Hct MCV MCH MCHC RDW Plt Count MPV Neut % (Auto) Lymph % (Auto) [place] % (Auto) Eos % (Auto) Baso % (Auto) Neut # (Auto) Lymph # (Auto) [place] # (Auto) Eos # (Auto) Baso # (Auto) Immature Gran % Nucleated RBC % Immature Gran # Nucleated RBCs # Immature Plt Fraction INR PT Patient/Control Mix Sodium Potassium Chloride Carbon Dioxide Anion Gap BUN Creatinine GFR Calculation BUN/Creatinine Ratio Glucose POC Glucose 118 H Calculated Osmolality Calcium Magnesium Total Bilirubin AST ALT Alkaline Phosphatase Troponin I Total Protein Albumin Globulin Albumin/Globulin Ratio Triglycerides Cholesterol LDL Cholesterol VLDL Cholesterol HDL Cholesterol Heart Disease Risk Ratio Urine Color Urine Appearance Urine pH Ur Specific [place] Urine Protein Urine Glucose (UA) Urine Ketones Urine Blood Urine Nitrate Urine Bilirubin Urine Urobilinogen Urine Leukocytes Urine RBC Urine WBC Amorphous Crystals Urine Bacteria Urine Mucus Ur Culture Indicated?
[2017-03-09] MEDS ORDERED: NON-FORMULARY MEDICATION (Docusate Sodium [Docusate Sodium] 100 MG) PO SCH (09:00)
[2017-03-09] MEDS ORDERED: ASPIRIN EC 81 MG TABLET PO SCH (09:00)
[2017-03-09] MEDS ORDERED: PANTOPRAZOLE 40 MG TABLET PO SCH (09:00)
[2017-03-09] MEDS ORDERED: POTASSIUM CHLORIDE 20 MEQ TABLET PO SCH (09:00)
--- NOTE | 2017-03-09 09:43 | EKG Report ---
Stationary ECG Study [facility] Test Date: 03/09/2017 9:44:20 AM Pat Name: BREONNA JENNINGS Department: Room: 427 Gender: F Metal Neutralizer: : 1950 Requested by: Tano Balderas Order Number: [id number] Reading MD: GRETA TANG Intervals Scenic Rate: 102 P: 999 IA: 0 QRS: 124 QRSD: 88 T: 63 QT: 342 QTc: 401 Interpretive Statements ATRIAL FLUTTER/TACHYCARDIA WITH RAPID VENTRICULAR RESPONSE WITH ABERRANT CONDUCTION OR VENTRICULAR PREMATURE COMPLEXES POSSIBLE RIGHT VENTRICULAR HYPERTROPHY ANTEROSEPTAL MYOCARDIAL INFARCTION, PROBABLY OLD Electronically Signed On 03-09-17 14:09:54 CDT by GRETA TANG [email or web address]
[2017-03-09] MEDS: SERTRALINE 50 MG TABLET PO SCH (11:35)
[2017-03-09] MEDS: HydrOXYzine PAMOATE 25 MG CAPSULE PO SCH ×2 (11:35→15:56)
[2017-03-09] MEDS: CARVEDILOL 6.25 MG TABLET PO SCH (11:36)
--- NOTE | 2017-03-09 11:42 | Hospitalist Progress Note ---
Assessment and Plan (1) acute exacerabtion of chronic mental ill Status: Acute Assessment and plan: 1)unknown mental illness diagnosis, off meds then took extra recently- get med list form pharmacy. She sees Dr Crews. consult SW for referral to agusto. Dr Cope to see also. Her CT brain showed nothing acute. carotids pending. UDS negative, UA negative, normal WBC, no fever. Her brother is concerned and reports that she is supposed to take care of her 88 yo mother- they live together. He wants to talk to social work also with questions about how he can help the situation. 2)cardiac- BP ok. INR elevated, probably because she has been taking extra medicine. holding coumadin, daily INR. appreciate cardiology input. Current Visit: Yes (2) Mitral regurgitation Status: Acute Current Visit: No (3) Hypertension Status: Chronic Current Visit: No Qualifiers: Hypertension type: essential hypertension Qualified Code(s): I10 - Essential (primary) hypertension (4) Hyperlipidemia Status: Chronic Current Visit: No (5) Chronic anticoagulation Status: Chronic Current Visit: Yes (6) Ischemic cardiomyopathy Status: Chronic Current Visit: Yes (7) Atrial fibrillation Status: Chronic Current Visit: Yes Qualifiers: Atrial fibrillation type: paroxysmal Qualified Code(s): I48.0 - Paroxysmal atrial fibrillation Hospitalist: Subjective Interval history: MRs Mcclure saw stable last night, heard singing hymns all night and noted to be only intermittently vocal this morning, licking herself like a cat and scratching. Her brother came by while I was there. Though she had not spoken to me but once , she answered his questions in a clear voice. He says he doesn't have details because his mother and sister keep things to himself, but she does have a diagnosis of mental illness, had been off her meds, and then yesterday may have taken double her prescribed doses. She fills her medicines at [facility] and our nurses will call to get a list. While I was her she was responding to internal stimuli but not really to me. Her mother with whom she lives was not present to give history. Exam - Constitutional Vitals: Period Temp Pulse Resp BP Sys/Wilson Pulse Ox Last 24 Hr 97.3 F-98.6 F 55-98 18-20 105-145/65-80 94-99 General appearance: no acute distress (scratching her arms, skin covered with skin picking sores in areas she can reach.), morbidly obese - Head Head exam: Present: normocephalic, atraumatic - Eye Eye exam: Present: EOMI. Absent: scleral icterus Pupils: Present: NAT - ENT ENT exam: Present: normal external ear exam - Respiratory Respiratory exam: Present: clear to auscultation bilaterally - Cardiovascular Cardiovascular exam: Present: regular rate and rhythm - GI/Abdominal GI/Abdominal exam: Present: normal bowel sounds, soft. Absent: tenderness - Extremities Exam Extremities exam: Absent: edema - Neurological Exam Neurological exam: Present: alert (will not answer many direct questions, distracted by voices or visions it seems) - Skin Skin exam: Present: warm, dry, other (sores from skin picking) Results - Labs CBC & BMP: 03/09/17 06:40 03/09/17 06:40 Lab Results: I have reviewed the past 24 hour labs Quality Measures - VTE Contraindication to Pharmacological VTE Prophylaxis: Already on Theraputic Agent , No Prophylaxis Needed
--- NOTE | 2017-03-09 15:19 | Neurology Consult Note ---
History of Present Illness History of present illness: Patient is not a very good historian at this time. History basically obtained from the chart. No family is available. Ms. Mcclure is a 67 year old right-handed white lady with past medical history significant for multiple medical problems who went to the cardiovascular [place] [facility] yesterday to have her pro time checked and it was noted to be greater than 5. Coumadin was placed on hold. Her mother and a caregiver were taken her to the car in a wheelchair and before she could get up she lost consciousness for 2-3 minutes. There was no witnessed seizure activity, bowel or bladder incontinence, nausea, vomiting, diaphoresis. She denies any associated chest pain, shortness of breath, focal motor weakness nor paresthesias. She has been having some difficulty with her speech and is not answering questions as she would normally do. Family states she has had no recent fever, chills, dysuria, hematuria, diarrhea, constipation, melena, hematochezia, hematemesis. They state that she has had an ongoing diffuse rash for which she is taking Benadryl. She is quite confused at the present time and having some difficulty in controlling her bladder. Home Medications Medication Instructions Recorded Confirmed Type Atorvastatin [Lipitor] 40 mg PO BEDTIME 02/07/17 03/09/17 History Carvedilol [Coreg] 6.25 mg PO BID 02/07/17 03/09/17 History Furosemide Tab [Lasix Tab] 80 mg PO BID 02/07/17 03/09/17 History Pantoprazole Tab [Protonix Tab] 40 mg PO DAILY 02/07/17 03/09/17 History Potassium Chloride 40 meq PO BID 02/07/17 03/09/17 History Losartan Potassium [Losartan 25 mg PO DAILY 03/08/17 03/09/17 History Potassium] Warfarin Sodium [Warfarin Sodium] 0 mg PO DAILY 03/08/17 03/09/17 History hydrOXYzine HCl [Hydroxyzine HCl] 25 - 50 mg PO Q8HR 03/08/17 03/09/17 History Permethrin [Permethrin 5% Cream] 1 applic TOP ONCE 03/09/17 03/09/17 History Sertraline HCl 50 mg PO BID 03/09/17 03/09/17 History clonazePAM TAB [KlonoPIN] 0.5 mg PO BID PRN 03/09/17 03/09/17 History Allergies Allergy/AdvReac Type Severity Reaction Status Date / Time SEB Inhibitors Allergy Cough Verified 02/07/17 13:21 latex Allergy RASH Verified 02/07/17 13:21 lisinopril Allergy Cough Verified 02/07/17 13:21 12 point system: reviewed and no additional remarkable complaints except as stated Medical,Surgical,& Family Hx - Medical History Cardio: History of: Cardiac Dysrhythmia (Atrial fibrillation), CAD, Hypertension , Valvular Heart Disease Psychological: History of: Anxiety Disorders, Depression Neurology: No history of: Seizures Endocrine: History of: Diabetes Mellitus (NIDDM), Dyslipidemia - Surgical History Cardiac Surgeries: Sugical HX of: Cardiac Surgery - Family History Family History: Denies;: Family Diabetes, Family Heart Disease - Social History Smoking Status: Former smoker Frequency of Alcohol Use: None Type of Drug Use: None Exam - Constitutional Vitals: Period Temp Pulse Resp BP Sys/Wilson Pulse Ox Last 24 Hr 97.3 F-98.7 F 55-98 18-20 105-145/65-91 92-99 Exam: GENERAL: Patient is in no acute distress. NECK: Neck is supple. There is no JVD. No carotid bruits present. No thyroid masses. CVS: First and second heart sounds are normal. There is no S3 present. Regular rate and rhythm. RESPIRATORY: Lungs are clear to auscultation without any rales or rhonchi. ABDOMEN: Soft and non-tender. Bowel sounds are present. There is no hepatosplenomegaly. EXT: There is no palpable edema. Peripheral pulses are present. Skin: No rashes Central Nervous system: General: Alert, awake but disoriented Speech: Fluent Comprehension: Fair Facial expressions: Normal Cranial Nerves: CN1/Olfactory: Normal CN II/ Optic: Normal, Visual Reyes unreliable CN III, and : NAT & EOMI CN V: Normal & intact CN VII: face is symmetric CNVIII: Normal CN XI/X/XI/XII: Intact and Normal Motor: Bulk and Tone is normal. Strength: Moving all 4 extremity Sensory: Grossly intact for all the modalities of PP, LT and temp sense Reflexes: 1+ and symmetrical Cerebellar function: Normal finger to nose testing. Toes: Equivocal Gait: Not tested at this time Results - Labs CBC & BMP: 03/09/17 06:40 03/09/17 06:40 Assessment and Plan (1) Altered mental status Status: Acute Assessment and plan: Etiology is not clear. It is difficult to obtain any history from her. She is quite delirious at this time. Differential diagnoses included parietal lobe stroke versus infectious etiology such as meningismus versus metabolic etiology. We will recheck urine. Start Rocephin 2 g IV every 12 MRI brain without contrast EEG Thank you for the consult Current Visit: Yes
[2017-03-09] MEDS ORDERED: cefTRIAXone 2,000 MG in SODIUM CHLORIDE 0.9% 100 ML IV SCH (15:30)
[2017-03-09] MEDS ORDERED: hydrOXYzine HCL 25 MG TABLET PO PRN (15:34)
[2017-03-09] MEDS ORDERED: clonazePAM 0.5 MG TABLET PO PRN (15:36)
[2017-03-09] MEDS ORDERED: LORazepam 2 MG/1 ML VIAL IV ONE (15:37)
[2017-03-09 17:00] LABS: Amorphous Crystals,Urine Few /HPF (Few); Apearance,Urine CLOUDY (Clear); Bacteria,Urine Many /HPF (Few); Bilirubin,Urine Negative (Negative); Blood, Urine Large mg/dL (Negative); Glucose,Urine (UA) Negative (Negative); Ketones,Urine Negative (Negative); Mucus,Urine Occasional /LPF (Occasional); Nitrite,Urine Negative (Negative); Protein,Urine 30 MG/DL; RBC,Urine 70 /HPF (0-4); Urine Color Yellow (Yellow); Urine Specific Gravity 1.012 (1.001-1.035); WBC,Urine 4 /HPF (0-6)
[2017-03-09 17:02] VITALS: BP 157/106
[2017-03-09] MEDS ORDERED: SODIUM CHLORIDE 0.9% 500 ML IV ONE ×2 (17:17→23:00)
--- NOTE | 2017-03-09 21:27 | Event Note ---
Please note ACLS drug administrations and times are noted in nursing reports. Responded to a CODE BLUE called to room 427. On arrival CPR was started. Respiratory started Ambu bag oxygenation. Rest the code team was available and started ACLS protocol. Patient was intubated by Dr. Paulino. Afterwards, verification of ET tube placement by colorimeter and bilateral auscultation was noted. Patient was found to have a pulse and attempt was made at obtaining a blood pressure no blood pressure was obtained. Monitor started to show evidence of bradycardia. Subsequently the pulse was lost. Chest compressions restarted. The patient was noted to have more secretions coming through the ET tube. Reverification of the ET tube with auscultation. At that time it was noted that patient's tube was in the stomach. Subsequently ET tube was returned removed and a new ET tube was placed by Dr. Nugent. Colorimeter was verified as well as bilateral auscultations. However, patient's rhythm remained PEA no pulse appreciated. Approximately 30 minutes had passed and patient had no pulse. Patient was on pressor medications IV fluids and had gone through several rounds of ACLS protocol drugs. The code was called at 210. Ms. Mcclure's brother Mr. Benji Mcclure was notified by phone that Ms. Mcclure had . He requested that the body be released to [facility] and that he was going to come back up to the hospital.
--- NOTE | 2017-03-09 21:29 | Discharge Summary ---
Hospital Course - Hospital Course Hospital Course: Please see code note for details. Responded to a CODE CONNER called on this patient. The patient was found unresponsive and blue in the face an undetermined amount of time when she was found by the nursing staff. CODE CONNER was called. The patient went through ACLS protocol and the patient initially intubated by Dr. Paulino. She initially had a pulse but was unable to get a blood pressure despite IV fluids and pressor medications administered. Subsequently the patient had large amounts of secretions and bloody vomitus coming from the ET tube. Moreover, from the monitor patient became bradycardic and then pulse was lost. The patient was reintubated by Dr. Nugent when it was determined that ET tube was not in place. Patient remain in a PEA rhythm that subsequently went to asystole. The patient was pronounced at 2108. The family was notified and the body was released to [facility]. - Time spent with patient Time with patient DS: Greater than 30 minutes (35 minutes) - Cause of Cause of : Respiratory failure due to aspiration Diagnosis - Discharge Diagnosis (1) Aspiration into airway Status: Acute (2) Cardiac arrest Status: Acute (3) Cardiac arrest following intubation Status: Acute Discharge Plan - Discharge Data Condition at Discharge: - Discharge Medications No Action Pantoprazole Tab [Protonix Tab] 40 mg PO DAILY Furosemide Tab [Lasix Tab] 80 mg PO BID Carvedilol [Coreg] 6.25 mg PO BID Warfarin Sodium [Warfarin Sodium] 0 mg PO DAILY Potassium Chloride 40 meq PO BID Atorvastatin [Lipitor] 40 mg PO BEDTIME hydrOXYzine HCl [Hydroxyzine HCl] 25 - 50 mg PO Q8HR Losartan Potassium [Losartan Potassium] 25 mg PO DAILY Permethrin [Permethrin 5% Cream] 1 applic TOP ONCE Sertraline HCl 50 mg PO BID clonazePAM TAB [KlonoPIN] 0.5 mg PO BID PRN PRN Reason: Anxiety - Follow Up or Referral - Forms/Instructions Additional Discharge Instructions: Discharge to [facility] Exam - Constitutional Vitals: Period Temp Pulse Resp BP Sys/Wilson Pulse Ox Last 24 Hr 97.5 F-98.7 F 55-114 14-20 105-157/65-106 92-98 Discharge Results Procedures and tests throughout hospitalization: Pending Orders 03/08/17 17:23 Blood Culture Stat 03/09/17 09:18 US carotid duplex BI Routine 03/09/17 15:20 MR head/brain wo con Routine NE EEG adult awake/drowsy Routine Labs on day of discharge: Labs from last 24 hours 03/09/17 03/09/17 03/09/17 16:47 16:40 06:40 WBC RBC Hgb Hct MCV MCH MCHC RDW Plt Count MPV Neut % (Auto) Lymph % (Auto) [place] % (Auto) Eos % (Auto) Baso % (Auto) Neut # (Auto) Lymph # (Auto) [place] # (Auto) Eos # (Auto) Baso # (Auto) Immature Gran % Nucleated RBC % Immature Gran # Nucleated RBCs # Immature Plt Fraction INR PT Patient/Control Mix Sodium 141 Potassium 3.8 Chloride 105 Carbon Dioxide 27 Anion Gap 12.8 BUN 23 H Creatinine 1.10 H GFR Calculation 57 BUN/Creatinine Ratio 20.00 Glucose 103 POC Glucose 118 H Calculated Osmolality 284.3 Calcium 8.9 Magnesium 2.2 Total Bilirubin 1.80 H AST 29 ALT 32 Alkaline Phosphatase 106 Troponin I Total Protein 6.6 Albumin 3.3 L Globulin 3.3 Albumin/Globulin Ratio 1.0 L Triglycerides 92 Cholesterol 54 LDL Cholesterol 27.0 VLDL Cholesterol 18.4 HDL Cholesterol 21 L Heart Disease Risk Ratio 2.57 Urine Color Yellow Urine Appearance Cloudy Urine pH 5.0 Ur Specific [place] 1.012 Urine Protein 30 Urine Glucose (UA) Negative Urine Ketones Negative Urine Blood Large Urine Nitrate Negative Urine Bilirubin Negative Urine Urobilinogen 4.0 H Urine Leukocytes Trace Urine RBC 70 Urine WBC 4 Amorphous Crystals Few Urine Bacteria Many Urine Mucus Occasional Ur Culture Indicated? Not indicated 03/09/17 03/09/17 03/08/17 06:40 06:40 23:54 WBC 5.9 RBC 4.96 Hgb 13.7 Hct 42.5 MCV 85.7 L MCH 28 MCHC 32.2 RDW 17.2 Plt Count 225 MPV 9.2 L Neut % (Auto) 70.2 Lymph % (Auto) 17.2 L [place] % (Auto) 11.0 Eos % (Auto) 0.7 Baso % (Auto) 0.7 Neut # (Auto) 4.2 Lymph # (Auto) 1.0 L [place] # (Auto) 0.7 Eos # (Auto) 0.0 Baso # (Auto) 0.0 Immature Gran % 0.2 Nucleated RBC % 0.0 Immature Gran # 0.01 Nucleated RBCs # 0.00 Immature Plt Fraction 0.0 INR 5.4 H* PT Patient/Control Mix 63.2 Sodium Potassium Chloride Carbon Dioxide Anion Gap BUN Creatinine GFR Calculation BUN/Creatinine Ratio Glucose POC Glucose Calculated Osmolality Calcium Magnesium Total Bilirubin AST ALT Alkaline Phosphatase Troponin I 0.033 Total Protein Albumin Globulin Albumin/Globulin Ratio Triglycerides Cholesterol LDL Cholesterol VLDL Cholesterol HDL Cholesterol Heart Disease Risk Ratio Urine Color Urine Appearance Urine pH Ur Specific [place] Urine Protein Urine Glucose (UA) Urine Ketones Urine Blood Urine Nitrate Urine Bilirubin Urine Urobilinogen Urine Leukocytes Urine RBC Urine WBC Amorphous Crystals Urine Bacteria Urine Mucus Ur Culture Indicated? 03/08/17 20:49 WBC RBC Hgb Hct MCV MCH MCHC RDW Plt Count MPV Neut % (Auto) Lymph % (Auto) [place] % (Auto) Eos % (Auto) Baso % (Auto) Neut # (Auto) Lymph # (Auto) [place] # (Auto) Eos # (Auto) Baso # (Auto) Immature Gran % Nucleated RBC % Immature Gran # Nucleated RBCs # Immature Plt Fraction INR PT Patient/Control Mix Sodium Potassium Chloride Carbon Dioxide Anion Gap BUN Creatinine GFR Calculation BUN/Creatinine Ratio Glucose POC Glucose Calculated Osmolality Calcium Magnesium Total Bilirubin AST ALT Alkaline Phosphatase Troponin I 0.042 Total Protein Albumin Globulin Albumin/Globulin Ratio Triglycerides Cholesterol LDL Cholesterol VLDL Cholesterol HDL Cholesterol Heart Disease Risk Ratio Urine Color Urine Appearance Urine pH Ur Specific [place] Urine Protein Urine Glucose (UA) Urine Ketones Urine Blood Urine Nitrate Urine Bilirubin Urine Urobilinogen Urine Leukocytes Urine RBC Urine WBC Amorphous Crystals Urine Bacteria Urine Mucus Ur Culture Indicated? Preliminary micro results at discharge 03/08/17 17:23 Blood Culture - Preliminary Blood No growth at 1 day 03/08/17 17:23 Blood Culture - Preliminary Blood No growth at 1 day DS: Provider Date of admission: 03/08/17 18:11 Primary care physician: Anna Shahid, Attending physician on admission: Dylan Bill MD Consults: 03/08/17 18:12 Consult to Physician [CONS] Routine Comment: Consulting Provider: Gianni Cope When should Consulting Provider be notified: In am Person Notified: Libby Date Notified: 03/09/17 Time Notified: 12:37 03/08/17 20:11 Consult to Physician [CONS] Routine Comment: AMS, Known to you Consulting Provider: Cardiology - [facility] Person Notified: Sachi Date Notified: 03/09/17 Time Notified: 12:34 03/08/17 22:23 Consult to Dietitian [CONS] Routine Reason for Dietitian: Dietary Consult 03/09/17 10:12 Consult to Case Mgmt/Social Srvs [CONS] Routine Reason for Case Mgmt/Social Srvs: Discharge Planning Consult Comment: erasmo psych referral Discharging clinician: Shorty Nugent Jr., MD
[2017-03-10] MEDS ORDERED: LOSARTAN 25 MG TABLET PO SCH (09:00)
[2017-03-10] MEDS ORDERED: DOCUSATE SODIUM 100 MG CAPSULE PO SCH (09:00)
== END 2017-03-09 21:08 | disposition expired | DRG 947 ==
LOC: EDBD → EDUNIT# → N.ED 16:04 → SUATTDRO 18:11 → N.EDINP 18:11 → N.4E 20:10
PROVIDERS: ADMIT Family Medicine; ATTEND Internal Medicine